=== PATIENT | female | born 1985 | race Caucasian/White ===

== ENCOUNTER → 2017-07-28 | Outpatient (CLI) | payer OTHER ==
[~2017-07-28] MED LIST: ACET325T96 PO; FLM4 PO
--- NOTE | 2017-07-29 07:46 | MAMMOGRAPHY REPORT ---
UNILATERAL LEFT DIGITAL DIAGNOSTIC MAMMOGRAM TOMOSYNTHESIS WITH CAD AND TARGETED LEFT ULTRASOUND: CLINICAL HISTORY: The patient reports intermittent pain in her left lateral breast for approximately 2 months. She denies any associated palpable lumps or other complaints. TECHNIQUE: Breast tomosynthesis in addition to standard 2D mammography was performed. Current study was also evaluated with a Computer Aided Detection (CAD) system. Left CC and MLO 2-D and tomosynthes is images were obtained. COMPARISON: No prior exams were available for comparison. BREAST COMPOSITION: There are scattered areas of fibroglandular density in the left breast. FINDINGS: There are no suspicious masses, calcifications, or areas of architectural distortion noted in the lef t breast mammographically. Targeted ultrasound was performed of the area of pain pointed out by the patient, in the left lateral breast at approximately 2 to 3:00. Sonographically normal tissue is seen in this region, without ev idence of a mass or other suspicious sonographic abnormality. IMPRESSION: ACR BI-RADS CATEGORY 1: NEGATIVE, TARGETED ULTRASOUND ACR BI-RADS CATEGORY 1: NEGATIVE No suspicious mammographic or sonographic abnormality to explain left lateral breast pain. There is no mammographic or targeted sonographic evidence of malignancy. Recommend clinical follow-up for lef t breast pain. The patient has been verbally notified of the results. Approximately 10% of breast cancers are not detected with mammography. A negative mammographic report should not delay biopsy if a clinically suggestive mass is present. Mimi Mann M.D. ah/:07/28/2017 14:27:30 Accounting Manager Assistant Controller: Mel CASTANEDA)([place]), [facility] letter sent: Normal 1/2 BI-RADS Code: ACR BI-RADS Category 1: Negative Ultrasound BI-RADS: ACR BI-RADS Category 1: Negative
== END | disposition home or self-care (01) ==
LOC: C.MAMM 13:45
PROVIDERS: ATTEND Physician Assistant
DX: N62 Hypertrophy of breast (principal)

== ENCOUNTER 2018-01-25 09:41 | Emergency (ER) | payer OTHER ==
[~2018-01-25] VITALS: Ht 175.3 cm; Wt 102.6 kg
[~2018-01-25 09:41] MED LIST changes: +ACET-1693 PO; -ACET325T96 PO
[2018-01-25 09:43] VITALS: TEMP 36.8; Ht 175.3 cm; Wt 102.6 kg
[2018-01-25] MEDS ORDERED: AMOX875T PO (10:29)
[2018-01-25] MEDS ORDERED: PRED20TA2 PO (10:29)
--- NOTE | 2018-01-25 10:30 | EMERGENCY ROOM VISIT NOTE ---
History First contact with patient: 09:48 Chief Complaint: SORETHROAT Stated Complaint: STREP History of Present Illness The patient is a 32 year old female who presents to the Emergency Room with complaints of "sore throat". The patient states that she has been experiencing a sore throat since Wednesday night. She states that she was seen by care site yesterday and had a negative rapid strep and when she woke up she felt worse and she has had fevers up to 102F orally. She states that she now has tonsillar exudate. She rates the overall pain she is still able to tolerate fluids and food. She has no trouble breathing. She rates the pain as a 6/10. She states that there is also body aches. No dysphasia. There is a productive cough with brown sputum. No shortness of breath, chest pain, pleuritic pain, sinus pressure, otalgia, weakness, recent sick contacts. Review of Systems A complete 6-point Review of Systems was discussed with the patient, with pertinent positives and negatives listed in the History of Present Illness. All remaining Review of Systems questions can be considered negative unless otherwise specified. Past Medical/Surgical History Medical Problems: (1) Flank pain (2) Hematuria (3) Intrauterine (4) Kidney stone (5) No pertinent past medical history (6) UTI (urinary tract infection) (7) Vaginal delivery Family History Patient reports no known family medical history. Social History Smoking Status: Former Smoker Alcohol Use: none Marital Status: Occupation Status: employed Current/Historical Medications Scheduled Acetaminophen Tab (Tylenol), 325 MG PO DAILY Amoxicillin & Pot Clavulanate (Augmentin 875-125 mg), 1 TAB PO BID Prednisone (Prednisone Tab), 2 TAB PO DAILY Tamsulosin HCl (Tamsulosin HCl), 0.4 MG PO HS Physical Exam Vital Signs Date Time Temp Pulse Resp B/P (MAP) Pulse Ox O2 Delivery O2 Flow Rate FiO2 01/25/18 10:35 99 18 138/78 97 01/25/18 09:43 96 Room Air 01/25/18 09:43 36.8 109 18 147/77 96 Room Air Physical Exam VITAL SIGNS - Vital signs and nursing notes were reviewed. Stable. Afebrile. GENERAL -32-year-old female appearing her stated age who is in no acute distress. Communicates well with provider and answers questions appropriately. SKIN - Without rashes. No meningeal or petechial rash. HEAD - NC/AT. EYES - PERRL with EOMI bilaterally. Sclera anicteric. EARS - No deformities of external structures noted on gross examination bilaterally. External auditory canals without discharge or otorrhea. Tympanic membranes pearly garza without retraction or bulging. No fluid or purulent material visualized behind the TM. Handle of malleus, umbo, cone of light, pars tensa/flaccid all easily visualized. NOSE - Midline and without cyanosis. No epistaxis or purulent drainage noted. MOUTH/OROPHARYNX - Without perioral cyanosis. Buccal mucosa pink and moist and without leukoplakia. Tongue is midline. Uvula midline. There is 2+ tonsillar hypertrophy bilaterally with white exudate. Airway is patent. NECK - Neck with FROM. Supple to palpation. Bilateral anterior cervical lymphadenopathy noted. No nuchal rigidity. Medical Decision & Procedures Medical Decision Patient was seen and evaluated as above in room A2. Review was performed of nursing notes and vital signs. After obtaining a thorough history and physical examination the above work up was performed. She presents to us today with a sore throat. She does meet 3 of the 4 Cent[facility] criteria. Rapid strep was negative with culture pending. I will treat for suspected streptococcal pharyngitis. Although certainly is possible this is still viral in etiology given her presentation will elect to treat with antibiotics. She will be given Augmentin and prednisone. She is to follow with the family doctor or return with worsening. Vital signs are stable. The patient was educated upon management, had questions answered prior to discharge, and was discharged home in good condition. In the evaluation and treatment of this patient the following differential diagnoses were entertained: Streptococcal pharyngitis, peritonsillar abscess, mononucleosis, viral illness, among others. Impression Primary Impression: Sore throat Departure Information Dispostion Home / Self-Care Condition GOOD Prescriptions Prednisone (Prednisone Tab) 20 Mg Tab 2 TAB PO DAILY for 5 Days, #10 TAB Prov: Chencho Winters PA-C 01/25/18 Amoxicillin & Pot Clavulanate (Augmentin 875-125 mg) 1 Tab Tab 1 TAB PO BID for 10 Days, #20 TAB Prov: Chencho Winters PA-C 01/25/18 Referrals Álvaro Zuniga M.D. (PCP) Patient Instructions My [facility] Additional Instructions You were seen in the emergency department for your sore throat. The results of your rapid strep screen were found to be negative. You were prescribed Augmentin to be taken every 12 hours. This is an antibiotic. All antibiotics have the potential to cause diarrhea. Stop this medication and contact a medical provider if you were to develop any significant adverse side effects including: wheezing, shortness of breath, passing out, vomiting, or a diffuse rash. Always take antibiotics as directed and COMPLETE the ENTIRE course regardless of the improvement of your symptoms. You have been prescribed Prednisone 40 mg to be taken orally once a day for the next 5 days. This is an anti-inflammatory medicine to be used to help minimize your symptoms. You should take the COMPLETE course of the medication. For pain and fever control, you can use the following qcox-per-kbwnesr medicines (if >12 yo): - Regular strength (325mg/tab) Tylenol (acetaminophen) 2 tabs every 4-6 hours as needed. Do not exceed 12 tablets in a 24 hour period. Avoid taking more than 3 grams (3000 mg) of Tylenol per day. This includes any other sources of acetaminophen you may take on a regular basis. - Regular strength (200 mg/tab) Advil (ibuprofen) 1-2 tabs every 4-6 hours as needed. Do not exceed a dose of 3200 mg per day. - For best results, alternate dosing of Tylenol and Advil. In addition to your prescribed medications, you can also use the following home remedies: - Warm salt-water gargles 3 times per day can soothe your throat and help to fight infection. - Warm tea with honey can soothe your throat. Return to the emergency department if your symptoms persist or worsen over the next 2-3 days despite treatment course outlined above. Return to the emergency department if you develop the following symptoms of: inability to swallow solids , liquids, or drool; excessive wheezing or inability to catch your breath; or intractable fever or pain. Follow up with your primary care provider in 2-3 days from today's emergency department visit.
[2018-01-25 10:35] VITALS: BP 138/78; PULSE 99; O2SAT 97
== END 2018-01-25 10:36 | disposition home or self-care (01) ==
LOC: C.EDB 09:43 → C.EDA 10:36
DX: J02.9 Acute pharyngitis, unspecified (principal); Z87.891 Personal history of nicotine dependence